=== PATIENT | male | born 1950 | race African-American/Black ===

== ENCOUNTER 2019-01-08 20:51 | Emergency (ER) | payer MEDICARE ==
[~2019-01-08] VITALS: Ht 180.3 cm; Wt 89.0 kg
--- OUTSIDE RECORDS SUMMARY | 2019-01-08 20:53 | XMS REPORT | Continuity of Care Document ---
Author Author Roge maria alejandra [facility] Interface Address Unknown Phone Unavailable Problems Problem Status Onset Date Classification Date Reported Comments Source N28.89 - OTHER SPECIFIED DISORDERS OF K Active 07/14/2017 [facility] Discharge Diagnosis: Personal history of colonic polyps 06/23/2017 06/25/2017 [facility] Diabetes mellitus type 2 Active 11/27/2016 Problem 06/25/2017 [facility] History of colonic polyp Active 09/29/2008 Problem 06/25/2017 [facility] Dyslipidemia Active Problem 06/25/2017 [facility] Hepatitis C<sup>1</sup> Resolved Problem 06/25/2017 completed HCV trx with Interferon and Ribavirin in 2005, undectable viral load on 03-18-17. [facility] Hypertension Active Problem 06/25/2017 [facility] Tennis elbow Active Problem 06/25/2017 [facility] Medications Medication Details Route Status Patient Instructions Ordering Provider Order Date Source [facility] Medication 433.33 mL, Soln-IV, IV, Once, first dose 06/23/17 10:04:00 CDT, stop date 06/23/17 10:04:00 CDT Inactive 06/23/2017 [facility] propofol 60 mg=6 mL, Emulsion, IV, Once, first dose 06/23/17 9:23:00 CDT, stop date 06/23/17 9:23:00 CDT Inactive 06/23/2017 [facility] propofol 60 mg=6 mL, Emulsion, IV, Once, first dose 06/23/17 9:14:00 CDT, stop date 06/23/17 9:14:00 CDT Inactive 06/23/2017 [facility] propofol 60 mg=6 mL, Emulsion, IV, Once, first dose 06/23/17 9:09:00 CDT, stop date 06/23/17 9:09:00 CDT Inactive 06/23/2017 [facility] lidocaine 3 mL, Injection, IV, Once, first dose 06/23/17 9:05:00 CDT, stop date 06/23/17 9:05:00 CDT Inactive 06/23/2017 [facility] propofol 140 mg=14 mL, Emulsion, IV, Once, first dose 06/23/17 9:05:00 CDT, stop date 06/23/17 9:05:00 CDT Inactive 06/23/2017 [facility] LR 1,000 mL 1,000 mL, IV, 30 mL/hr, start date 06/23/17 7:46:00 CDT Inactive 06/23/2017 [facility] Lidocaine 2% 0.2 mL IV Start [[place]] 0.2 mL, Injection, Subcutaneous, Once PRN for other (see comment), first dose 06/23/17 7:46:00 CDT Inactive 06/23/2017 [facility] rosuvastatin 10 mg oral tablet 10 mg=1 tabs, Oral, qHS, 0 Refill(s), cholesterol Active 06/19/2017 [facility] Metoprolol 50 mg, Oral, qHS, 0 Refill(s), HTN Active 06/19/2017 [facility] Metformin hydrochloride 500 MG Oral Tablet 500 mg=1 tabs, Oral, Daily, hold AM of procedure, 0 Refill(s) Active 06/19/2017 [facility] folic acid 1 mg oral tablet 1 mg=1 tabs, Oral, Daily, 0 Refill(s) Active 06/19/2017 [facility] ezetimibe 10 mg oral tablet 10 mg=1 tabs, Oral, Daily, 0 Refill(s), cholesterol Active 06/19/2017 [facility] Amlodipine 5 MG / Olmesartan medoxomil 40 MG Oral Tablet 1 tabs, Oral, Daily, take AM of procedure, # 30 tabs, 0 Refill(s), HTN Active 06/19/2017 [facility] Aspirin 81 MG Oral Tablet 81 mg=1 tabs, Oral, Daily, 0 Refill(s), heart health Active 06/19/2017 [facility] meloxicam 15 mg, Oral, Daily, hold AM of procedure, 0 Refill(s), tennis elbow Active 06/19/2017 [facility] Allergies, Adverse Reactions, Alerts Substance Category Reaction Severity Reaction type Status Date Reported Comments Source No Known Medication Allergies Assertion Drug allergy [facility] Immunizations Immunization Date Given Site Status Last Updated Comments Source Results Order Name Results Value Reference Range Date Interpretation Comments Source Abdomen/Pelvis w/wo IV contrast CT Abdomen/Pelvis w/wo IV contrast CT CT ABDOMEN/PELVIS WITHOUT AND WITH IV CONTRAST HISTORY: ; N28.89 Other specified disorders of kidney and ureter, f/u to US - DLP: 2618.67 mGy-cm, IV contrast 100 mL Omnipaque 300; patient reports history of kidney lesion TECHNIQUE: Multiple contiguous axial images of the abdomen and pelvis were performed. Coronal and sagittal reformatted images were obtained. COMPARISON: None available. FINDINGS: Aside from a tiny 3 mm benign cortical cyst of the right kidney, no renal lesions are seen. No renal soft tissue mass. No urinary calculus. Normal enhancement of the kidneys. No hydronephrosis. Normal excretion from both kidneys on delayed phase imaging. There is mild bilateral perinephric stranding, a nonspecific finding which can be associated with renal insufficiency. Urinary bladder is normal. Prostate gland is enlarged and measures 4.8 x 4.0 x 5.7 cm. The lung bases are clear. The liver, spleen, pancreas, and adrenal glands are normal. No calcified gallstones. No biliary dilation. The stomach and duodenum are unremarkable. Normal small and large bowel. Normal appendix. No bowel obstruction. There is a fat-containing umbilical hernia which measures 5 x 3 x 5 cm. Mild edematous stranding within the herniated fat is noted. No ascites, adenopathy, or pneumoperitoneum. Mild aortoiliac atherosclerotic calcification. No acute osseous abnormality. IMPRESSION: 1. No suspicious renal lesion is identified. The only renal lesion is a tiny 3 mm benign cortical cyst of the right kidney. 2. Mild bilateral perinephric stranding, a nonspecific finding which can be associated with renal insufficiency. 3. A 5 cm fat-containing umbilical hernia which demonstrates mild edematous stranding of the herniated fat, a finding which can be associated with pain/incarceration. 4. Prostatomegaly and mild aortoiliac atherosclerotic calcification. SL: [id number] 07/17/2017 - - Read by: Lion Trujillo MD Dictated Date/time: 07/17/17 15:54 Electronically Signed by: Lion Trujillo MD 07/17/17 16:03 FINAL REPORT [facility] LABORATORY Blood Glucose, Capillary 86 mg/dL 74 - 106 06/23/2017 [facility] Vital Signs Vital Sign Value Date Comments Source Systolic (mm Hg) 155 06/23/2017 [facility] Diastolic (mm Hg) 83 06/23/2017 [facility] Peripheral Pulse Rate 63 06/23/2017 [facility] Respitory Rate 12 06/23/2017 [facility] Systolic (mm Hg) 146 06/23/2017 [facility] Diastolic (mm Hg) 86 06/23/2017 [facility] Respitory Rate 16 06/23/2017 [facility] Heart Rate 62 06/23/2017 [facility] Systolic (mm Hg) 147 06/23/2017 [facility] Diastolic (mm Hg) 86 06/23/2017 [facility] Respitory Rate 20 06/23/2017 [facility] Temperature Oral (F) 36.5 Tish 06/23/2017 [facility] Heart Rate 68 06/23/2017 [facility] Temperature Oral (F) 36.9 Tish 06/23/2017 [facility] Peripheral Pulse Rate 65 06/23/2017 [facility] Weight Measured 91.17 06/23/2017 [facility] Height 180.34 cm 06/23/2017 [facility] Weight Measured 91.17 06/19/2017 [facility] Height 180.34 cm 06/19/2017 [facility] Encounters Location Location Details Encounter Type Encounter Number Reason For Visit Attending Provider ADM Date DC Date Status Source [facility] Outpatient [id number] Navid Vachhani 06/23/2017 06/23/2017 Active [facility] Outpatient [id number] Navid Vachhani 06/23/2017 06/23/2017 [facility] Outpatient Imaging [facility] Outpt Diag Services [id number] Hima Wills III 07/17/2017 07/18/2017 [facility] Procedures Procedure Code Date Perfomer Comments Source COLONOSCOPY FLEXIBLE; WITH BIOPSY; SINGLE OR MULTIPLE 55369 (Other)<sup>1</sup> 06/23/2017 auto-populated from documented surgical case [facility] liver BX 09/29/2005 [facility] colonoscopy<sup>2</sup> 2008, 2011 [facility]
--- OUTSIDE RECORDS SUMMARY | 2019-01-08 20:53 | XMS REPORT | Clinical Summary ---
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 Role Phone Awilda Lara PCP Unavailable Allergies No Known Allergies Medications No known medications Active Problems No known active problems Encounters Care Team Description Date Type Specialty Stephane Galloway MD Umbilical hernia without obstruction and without gangrene (Primary Dx) 09/01/2018 Office Visit General Surgery after 01/07/2018 Social History Date Tobacco Use Types Packs/Day Years Used Former Smoker Smokeless Tobacco: Never Used Alcohol Use Drinks/Week oz/Week Comments Yes 5 Standard 3.0 drinks or equivalent Sex Assigned at Date Recorded Not on file Industry Job Start Date Occupation Not on file Not on file Not on file Travel End Travel History Travel Start No recent travel history available. 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 For more information, all he contact: Cliff Barakat [address] [place] [address]
--- OUTSIDE RECORDS SUMMARY | 2019-01-08 20:54 | XMS REPORT | Summary of Care ---
Author Author [facility] Organization [facility] Address Unknown Phone Unavailable Encounter FIN [facility] [id number] Date(s): 06/23/17 - 06/23/17 [facility] [address] [place], [place] [address] Discharge Diagnosis: Personal history of colonic polyps Discharge Disposition: Discharged to Home or Self Care Attending Physician: Navid Parish MD Admitting Physician: Navid Parish MD Vital Signs 1 2 3 Most recent to oldest [Reference Range]: 36.9 DegC (06/23/17 7:58 AM) Temperature Oral [35.8-37.3 DegC] 36.5 DegC (06/23/17 9:20 AM) Temperature Temporal Artery [36.3-37.8 DegC] 97.7 (06/23/17 9:20 AM) Temperature Temporal Fahrenheit 63 bpm (06/23/17 10:05 AM) 65 bpm (06/23/17 7:58 AM) Peripheral Pulse Rate [55-105 bpm] 62 bpm (06/23/17 9:30 AM) 68 bpm (06/23/17 9:20 AM) Heart Rate Monitored [60-100 bpm] 12 (06/23/17 10:05 AM) 16 (06/23/17 9:30 AM) 20 (06/23/17 9:20 AM) Respiratory Rate [12-20] 99 % (06/23/17 10:05 AM) 98 % (06/23/17 9:30 AM) 98 % (06/23/17 9:20 AM) SpO2 [90-100 %] 155/83 mmHg *HI* (06/23/17 10:05 AM) 146/86 mmHg *HI* (06/23/17 9:30 AM) 147/86 mmHg *HI* (06/23/17 9:20 AM) Blood Pressure [110-120/65-85 mmHg] 106 mmHg (06/23/17 9:30 AM) 106.3 mmHg (06/23/17 9:20 AM) Mean Arterial Pressure, Cuff 180.34 cm (06/23/17 7:58 AM) 180.34 cm (06/19/17 12:41 PM) Height 180.34 cm (06/23/17 7:58 AM) 180.34 cm (06/19/17 12:41 PM) Height/Length Dosing 71 in (06/23/17 7:58 AM) 71 in (06/19/17 12:41 PM) Height Inches 91.17 kg (06/23/17 7:58 AM) 91.17 kg (06/19/17 12:41 PM) Weight 91.17 kg (06/23/17 7:58 AM) 91.17 kg (06/19/17 12:41 PM) Weight Dosing 201 lb (06/23/17 7:58 AM) 201 lb (06/19/17 12:41 PM) Weight Pounds 28.03 kg/m2 (06/23/17 7:58 AM) 28.03 kg/m2 (06/19/17 12:41 PM) Body Mass Index Problem List Condition Effective Dates Status Health Status Informant Diabetes mellitus 11/2016 Active type 2(Confirmed) Dyslipidemia(Confirm Active ed) Hepatitis Resolved C(Confirmed)1 History of colonic 2009 Active polyp(Confirmed) Hypertension(Confirm Active ed) Tennis Active elbow(Confirmed) 1completed HCV trx with Interferon and Ribavirin in 2005, undectable viral load on 03-18-17. Allergies, Adverse Reactions, Alerts No Known Medication Allergies Medications amlodipine-olmesartan 5 mg-40 mg oral tablet 1 tabs, Oral, Daily, take AM of procedure, # 30 tabs, 0 Refill(s), HTN Start Date: 06/19/17 Stop Date: 07/03/17 Status: Ordered aspirin 81 mg oral tablet 81 mg=1 tabs, Oral, Daily, 0 Refill(s), heart health Start Date: 06/19/17 Stop Date: 07/03/17 Status: Ordered ezetimibe 10 mg oral tablet 10 mg=1 tabs, Oral, Daily, 0 Refill(s), cholesterol Start Date: 06/19/17 Stop Date: 07/03/17 Status: Ordered folic acid 1 mg oral tablet 1 mg=1 tabs, Oral, Daily, 0 Refill(s) Start Date: 06/19/17 Stop Date: 07/03/17 Status: Ordered lidocaine 3 mL, Injection, IV, Once, first dose 06/23/17 9:05:00 CDT, stop date 06/23/17 9 :05:00 CDT Start Date: 06/23/17 Stop Date: 06/23/17 Status: Completed Lidocaine 2% 0.2 mL IV Start [[place]] 0.2 mL, Injection, Subcutaneous, Once PRN for other (see comment), first dose 7:46:00 CDT Start Date: 06/23/17 Stop Date: 06/23/17 Status: Deleted LR 1,000 mL 1,000 mL, IV, 30 mL/hr, start date 06/23/17 7:46:00 CDT Start Date: 06/23/17 Stop Date: 06/23/17 Status: Discontinued meloxicam 15 mg, Oral, Daily, hold AM of procedure, 0 Refill(s), tennis elbow Start Date: 06/19/17 Stop Date: 07/03/17 Status: Ordered metFORMIN 500 mg oral tablet 500 mg=1 tabs, Oral, Daily, hold AM of procedure, 0 Refill(s) Start Date: 06/19/17 Stop Date: 07/03/17 Status: Ordered metoprolol 50 mg, Oral, qHS, 0 Refill(s), HTN Start Date: 06/19/17 Stop Date: 07/03/17 Status: Ordered Misc Medication 433.33 mL, Soln-IV, IV, Once, first dose 06/23/17 10:04:00 CDT, stop date 10:04:00 CDT Start Date: 06/23/17 Stop Date: 06/23/17 Status: Completed propofol 60 mg=6 mL, Emulsion, IV, Once, first dose 06/23/17 9:23:00 CDT, stop date 06/23 9:23:00 CDT Start Date: 06/23/17 Stop Date: 06/23/17 Status: Completed propofol 60 mg=6 mL, Emulsion, IV, Once, first dose 06/23/17 9:09:00 CDT, stop date 06/23 9:09:00 CDT Start Date: 06/23/17 Stop Date: 06/23/17 Status: Completed propofol 60 mg=6 mL, Emulsion, IV, Once, first dose 06/23/17 9:14:00 CDT, stop date 06/23 9:14:00 CDT Start Date: 06/23/17 Stop Date: 06/23/17 Status: Completed propofol 140 mg=14 mL, Emulsion, IV, Once, first dose 06/23/17 9:05:00 CDT, stop date 9:05:00 CDT Start Date: 06/23/17 Stop Date: 06/23/17 Status: Completed rosuvastatin 10 mg oral tablet 10 mg=1 tabs, Oral, qHS, 0 Refill(s), cholesterol Start Date: 06/19/17 Stop Date: 07/03/17 Status: Ordered Results LABORATORY Most recent to 1 oldest [Reference Range]: Blood Glucose, 86 mg/dL Capillary [74-106 (06/23/17 7:58 AM) mg/dL] Immunizations No data available for this section Procedures Procedure Date Related Diagnosis Body Site COLONOSCOPY FLEXIBLE; WITH BIOPSY; SINGLE OR 06/23/17 MULTIPLE 22185 (Other)1 liver BX 2005 colonoscopy2 1auto-populated from documented surgical case 2011 Social History Social History Type Response Smoking Status Never smoker; Type: Cigarettes; Number of years: 20; Stopped at age: 36; Assessment and Plan No data available for this section
--- OUTSIDE RECORDS SUMMARY | 2019-01-08 20:54 | XMS REPORT | Summary of Care ---
Author Author [facility] Outpatient Imaging [facility] Outpatient Imaging [facility] Address Unknown Phone Unavailable Encounter HQ Encntr_alias(FIN) [id number] Date(s): 07/17/17 - 07/17/17 [facility] Outpatient Imaging [facility] [address] [facility] [address] [facility] [address] [place], [place] [address]- [phone] Discharge Disposition: Home or Self Care Attending Physician: Hima Fall MD Vital Signs No data available for this section Problem List No data available for this section Allergies, Adverse Reactions, Alerts No data available for this section Medications No data available for this section Results No data available for this section Immunizations No data available for this section Procedures No data available for this section Social History No data available for this section Assessment and Plan No data available for this section
[2019-01-08] MEDS ORDERED: CRESTOR10 MG (21:48)
[2019-01-08] MEDS ORDERED: ASPIR 8181 MG (21:48)
[2019-01-08] MEDS ORDERED: VITAMIN D32000 UNIT (21:48)
[2019-01-08] MEDS ORDERED: METOPROLOL SUCC50 MG PO (21:48)
[2019-01-08] MEDS ORDERED: MULTI-VITAMIN1 EACH (21:48)
[2019-01-08] MEDS ORDERED: AZOR 5-40 MG T1 EACH (21:48)
[2019-01-08] MEDS ORDERED: FOLIC ACID1 MG PO (21:48)
[2019-01-08] MEDS ORDERED: METFORMIN HCL500 MG PO (21:48)
[2019-01-08] MEDS ORDERED: ZETIA10 MG PO (21:48)
[2019-01-08 22:31] VITALS: BP 121/69
== END 2019-01-08 22:15 | disposition home or self-care (01) ==
LOC: FSED 20:51
DX: H92.02 Otalgia, left ear (principal); T16.2XXA Foreign body in left ear, initial encounter; I10 Essential (primary) hypertension
CPT/HCPCS: 99282

== ENCOUNTER 2022-01-02 11:14 | Emergency (ER) | payer MEDICARE ==
[~2022-01-02] VITALS: Ht 180.3 cm; Wt 86.2 kg
[~2022-01-02 11:14] MED LIST: ASPIR 8181 MG; AZOR 5-40 MG T1 EACH; CRESTOR10 MG; FOLIC ACID1 MG PO; METFORMIN HCL500 MG PO; METOPROLOL SUCC50 MG PO; MULTI-VITAMIN1 EACH; VITAMIN D32000 UNIT; ZETIA10 MG PO
== END 2022-01-02 11:57 | disposition home or self-care (01) ==
LOC: FSED 11:23
DX: H61.23 Impacted cerumen, bilateral (principal); I10 Essential (primary) hypertension; E11.9 Type 2 diabetes mellitus without complications; E78.5 Hyperlipidemia, unspecified
CPT/HCPCS: 99282

== ENCOUNTER 2024-04-23 21:07 | Inpatient (IN) | payer MEDICARE ==
[~2024-04-23] VITALS: Ht 180.3 cm; Wt 79.4 kg
[2024-04-23] MEDS: ACETAMINOPHEN 325 MG TAB PO ONE (21:35)
[2024-04-23] MEDS: SODIUM CHLORIDE 0.9% 1000ML 1,000 ML IV STA (21:35)
[2024-04-23] MEDS ORDERED: PAXLOVID 300-11 EAC1 PO (22:09)
[2024-04-23] MEDS ORDERED: IBUPROFEN 600 MG TAB ONE (22:53)
[2024-04-23] MEDS: IBUPROFEN 600 MG TAB PO STA (23:10)
[2024-04-23] MEDS: CEFTRIAXONE 1 GM VIAL IM ONE (23:14)
[2024-04-23] MEDS ORDERED: SODIUM CHLORIDE FLUSH 10 ML SYR INJ PRN (23:15)
[2024-04-23] MEDS: Doxycycline IV 100 MG in SODIUM CHLORIDE 0.9% 100 ML IV ONE (23:18)
[2024-04-23] MEDS: ASPIRIN 81 MG CHEW TAB PO ONE (23:21)
[2024-04-23 23:30] VITALS: PULSE 90; RESP 18; TEMP 100.7
[2024-04-24] VITALS (11 sets, daily range): BP systolic 125–135; BP diastolic 62–75; PULSE 75–91; RESP 16–20; TEMP 98.4–101.6; O2SAT 95–99
[2024-04-24] MEDS ORDERED: TAMSULOSIN PO (01:11)
[2024-04-24] MEDS ORDERED: LOSARTAN POTAS100 MG PO (01:11)
[2024-04-24] MEDS ORDERED: FINASTERIDE5 MG PO (01:11)
[2024-04-24 07:10] LABS: TROPONIN I 0.016 ng/mL (0-0.300)
[2024-04-24] MEDS ORDERED: HYDRALAZINE HCL 25 MG TAB PO PRN (11:30)
[2024-04-24] MEDS ORDERED: ALBUTEROL/IPRATROPIUM 3 ML NEB NEB PRN (11:30)
[2024-04-24] MEDS: INSULIN LISPRO 100 UNIT/1 ML 3ML VIAL SQ SCH (11:30)
[2024-04-24] MEDS ORDERED: DEXTROSE 50% SYRINGE 50 ML IV PRN (11:30)
[2024-04-24] MEDS ORDERED: ONDANSETRON HCL INJ 2MG/ML 2ML 2 MG/ML VIAL IV PRN (11:30)
[2024-04-24] MEDS: ALBUTEROL/IPRATROPIUM 3 ML NEB NEB SCH (13:00)
[2024-04-24] MEDS: ACETAMINOPHEN 325 MG TAB PO PRN (15:21)
[2024-04-25] VITALS (12 sets, daily range): BP systolic 134–142; BP diastolic 70–80; PULSE 69–96; RESP 17–19; TEMP 97.6–100.8; O2SAT 93–99
[2024-04-25 06:14] LABS: BASOPHILS % 0.4 % (0.0-1.0); EOSINOPHILS # (AUTO) 0.1 (0.0-0.4); EOSINOPHILS % 1.3 % (0.0-6.0); HEMOGLOBIN 10.4 g/dL (14.0-18.0); LYMPHOCYTES # (AUTO) 1.4 (1.0-3.2); LYMPHOCYTES % 12.4 % (18.0-39.1); MEAN CORPUSCULAR HEMOGLOBIN 27.1 pg (28-32); MEAN CORPUSCULAR HGB CONC 31.5 g/dL (31-35); MEAN CORPUSCULAR VOLUME 85.9 fL (81-99); MONOCYTES # (AUTO) 1.1 (0.2-0.8); MONOCYTES % 9.6 % (4.4-11.3); NEUTROPHILS # (AUTO) 8.4 (2.1-6.9); NEUTROPHILS % 74.9 % (38.7-80.0); PLATELET COUNT 268 x10e3/uL (140-360); RED BLOOD COUNT 3.84 x10e6/uL (4.3-5.7); RED CELL DISTRIBUTION WIDTH 14.5 % (11.7-14.4)
[2024-04-25 06:27] LABS: MAGNESIUM 1.9 MG/DL (1.3-2.1); PHOSPHORUS 3.2 MG/DL (2.3-4.7)
[2024-04-25 06:29] LABS: CALCIUM 9.6 mg/dL (8.4-10.2); CREATININE, SERUM 1.09 mg/dL (0.72-1.25)
[2024-04-25 06:41] LABS: TROPONIN I 0.011 ng/mL (0-0.300)
[2024-04-25 06:47] LABS: THYROID STIMULATING HORMONE 1.592 uIU/mL (0.350-4.940)
[2024-04-25] MEDS: FINASTERIDE 5 MG TAB PO SCH (08:59)
[2024-04-25] MEDS: FOLIC ACID 1 MG TAB PO SCH (09:00)
[2024-04-25] MEDS: METOPROLOL SUCCINATE 50 MG TAB XL PO SCH (09:00)
[2024-04-25] MEDS: EZETIMIBE 10 MG TAB PO SCH (09:00)
[2024-04-25] MEDS: LOSARTAN POTASSIUM 100 MG TAB PO SCH (09:00)
[2024-04-25 10:28] LABS: POTASSIUM 3.1 mmol/L (3.5-5.1)
[2024-04-25 12:33] LABS: ANION GAP 23.1 mmol/L (8-16)
[2024-04-25] MEDS: POTASSIUM CHLORIDE 10MEQ EA PO ONE (13:24)
[2024-04-25] MEDS: ENOXAPARIN SOD INJ 40 MG/0.4 ML SYR SC SCH (17:29)
[2024-04-26] VITALS (10 sets, daily range): BP systolic 137–149; BP diastolic 66–80; PULSE 81–93; RESP 17–20; TEMP 97.6–99.4; O2SAT 94–98
[2024-04-26 05:25] LABS: TROPONIN I 0.02 ng/mL (0-0.300)
[2024-04-26] MEDS ORDERED: ONDANSETRON HCL 4 MG ORAL DISINTEGRATING TAB PO PRN (11:45)
[2024-04-27] MEDS ORDERED: AZITHROMYCIN 250 MG TAB PO SCH (12:00)
== END 2024-04-26 15:04 | disposition home or self-care (01) | DRG 177 ==
LOC: FSED 21:10 → ERHOLD 23:08 → MED/SURG3 04-24 00:28 → OBSVTOIN 04-25 12:20
PROVIDERS: ADMIT Internal Medicine; ATTEND Internal Medicine
DX: U07.1 COVID-19 (principal); J12.82 Pneumonia due to coronavirus disease 2019; J15.9 Unspecified bacterial pneumonia; J20.9 Acute bronchitis, unspecified; R51.9 Headache, unspecified; I10 Essential (primary) hypertension; E78.5 Hyperlipidemia, unspecified; E11.9 Type 2 diabetes mellitus without complications; K52.9 Noninfective gastroenteritis and colitis, unspecified; N40.0 Benign prostatic hyperplasia without lower urinary tract symptoms; E87.8 Other disorders of electrolyte and fluid balance, not elsewhere classified; Z79.82 Long term (current) use of aspirin; Z79.84 Long term (current) use of oral hypoglycemic drugs
CPT/HCPCS: 0223U; 36415; 70450; 71046; 71250; 80048; 80053; 81003; 82550; 82948; 83036; 83605; 83735; 84100; 84443; 84484; 85025; 87040; 87071; 87205; 87400; 94640; 94799; 96372; 99284; G0378; J0696; J1650; J7030; J7050

== ENCOUNTER 2024-11-28 12:33 | Emergency (ER) | payer MEDICARE ==
[~2024-11-28] VITALS: Ht 180.3 cm; Wt 78.6 kg
[~2024-11-28 12:33] MED LIST changes: +FINASTERIDE5 MG PO; +LOSARTAN POTAS100 MG PO; +PAXLOVID 300-11 EAC1 PO; +TAMSULOSIN PO
[2024-11-28 12:38] VITALS: PULSE 114; RESP 20; TEMP 98.9; O2SAT 96
[2024-11-28] MEDS ORDERED: MUPIROCIN22 GM TOP (12:59)
[2024-11-28] MEDS: BACITRACIN ZINC 0.9GM TP ONE (12:59)
[2024-11-28] MEDS ORDERED: DOXYCYCLINE HY100 MG PO (13:15)
[2024-11-28] MEDS ORDERED: TYLENOL325 MG PO (13:15)
== END 2024-11-28 13:22 | disposition home or self-care (01) ==
LOC: FSED 12:37
DX: S50.811A Abrasion of right forearm, initial encounter (principal); W01.0XXA Fall on same level from slipping, tripping and stumbling without subsequent striking against object, initial encounter; Y93.01 Activity, walking, marching and hiking; Y92.480 Sidewalk as the place of occurrence of the external cause; I10 Essential (primary) hypertension; E11.9 Type 2 diabetes mellitus without complications; E78.5 Hyperlipidemia, unspecified
CPT/HCPCS: 99284